=== PATIENT | male | born 1945 | race Caucasian/White ===

== ENCOUNTER 2020-01-26 11:20 | Emergency (ER) | payer OTHER ==
[~2020-01-26] VITALS: Ht 177.8 cm; Wt 73.0 kg
[2020-01-26 12:20] LABS: BASOPHILS % 1.5 % (0.0-2.0); EOSINOPHILS % 4.2 % (0.0-5.0); HEMATOCRIT. 43.4 % (42.0-52.0); MEAN CORPUSCULAR HEMOGLOBIN 30.6 pg (28.0-32.0); MEAN CORPUSCULAR VOLUME 88.2 fL (80.0-94.0); NEUTROPHILS % 62.3 % (40.0-76.0); PLATELET 155 x1000/uL (130-400); RED BLOOD CELL COUNT 4.92 mill/uL (4.7-6.1); RED CELL DISTRIBUTION WIDTH 14.1 % (11.6-14.6)
[2020-01-26 12:27] LABS: CHLORIDE 105 mEq/L (98-107)
[2020-01-26 12:31] LABS: ETHANOL BLOOD 246 mg/dL
[2020-01-26 14:50] VITALS: BP 131/72
== END 2020-01-26 14:50 | disposition home or self-care (01) ==
LOC: ER 11:20
DX: F10.129 Alcohol abuse with intoxication, unspecified (principal); Y90.8 Blood alcohol level of 240 mg/100 ml or more; G31.9 Degenerative disease of nervous system, unspecified; R90.82 White matter disease, unspecified; J98.11 Atelectasis
CPT/HCPCS: 36415; 71045; 80053; 80320; 85025; 93005; 99285; G0480

== ENCOUNTER 2022-05-25 14:08 | Emergency (ER) | payer OTHER, MEDICARE ==
[~2022-05-25] VITALS: Ht 167.6 cm; Wt 79.0 kg
[2022-05-25 18:26] VITALS: BP 118/73
[2022-05-25 18:37] LABS: EOSINOPHILS % 2.5 % (0.0-5.0); HEMATOCRIT. 45.3 % (42.0-52.0); HEMOGLOBIN. 15.7 g/dL (14.0-18.0); LYMPHOCYTES % 22.2 % (20.0-50.0); MEAN CORPUSCULAR HEMOGLOBIN 30.8 pg (28.0-32.0); MEAN CORPUSCULAR VOLUME 88.8 fL (80.0-94.0); MEAN PLATELET VOLUME 8.7 fl (7.4-10.4); MONOCYTES % 4.3 % (2.0-8.0); PLATELET 169 x1000/uL (130-400); RED CELL DISTRIBUTION WIDTH 14.2 % (11.6-14.6)
[2022-05-25 18:42] LABS: CHLORIDE 107 mEq/L (98-107)
[2022-05-25 18:56] LABS: ETHANOL BLOOD 137 mg/dL
== END 2022-05-25 18:57 | disposition home or self-care (01) ==
LOC: ER 14:08
DX: F10.129 Alcohol abuse with intoxication, unspecified (principal); S09.8XXA Other specified injuries of head, initial encounter; I48.20 Chronic atrial fibrillation, unspecified; Y90.6 Blood alcohol level of 120-199 mg/100 ml; Z59.00 Homelessness unspecified; Z86.19 Personal history of other infectious and parasitic diseases; X58.XXXA Exposure to other specified factors, initial encounter; Y93.89 Activity, other specified; Y92.488 Other paved roadways as the place of occurrence of the external cause
CPT/HCPCS: 36415; 80053; 80320; 85025; 99283; G0480

== ENCOUNTER 2024-09-28 16:18 | Emergency (ER) | payer MEDICARE, OTHER ==
[~2024-09-28] VITALS: Ht 167.6 cm; Wt 68.0 kg
[2024-09-28 16:22] VITALS: O2SAT 97
[2024-09-28 21:22] VITALS: BP 120/64; PULSE 74; RESP 16; TEMP 36.4; O2SAT 98
== END 2024-09-28 21:20 | disposition home or self-care (01) ==
LOC: ER 17:04
DX: F10.10 Alcohol abuse, uncomplicated (principal); Y90.9 Presence of alcohol in blood, level not specified
CPT/HCPCS: 99283